=== PATIENT | female | born 1950 | race African-American/Black ===

== ENCOUNTER 2017-09-13 09:03 | Emergency (ER) | payer MEDICARE, MEDICAID ==
[2017-09-13] MEDS ORDERED: IPRATROPIUM/ALBUTEROL 0.5-2.5 MG/3 ML AMPUL NEB ONE (09:45)
[2017-09-13] MEDS ORDERED: PREDNISONE 20 MG TABLET PO ONE (09:45)
--- NOTE | 2017-09-13 09:56 | RADIOLOGY REPORT (SQ) ---
EXAM DESCRIPTION: CHEST PA/LAT COMPLETED DATE/TIME: 09/13/2017 9:33 am REASON FOR STUDY: cough and congestion COMPARISON: None. EXAM PARAMETERS: NUMBER OF VIEWS: two views TECHNIQUE: Digital Frontal and Lateral radiographic views of the chest acquired. RADIATION DOSE: NA LIMITATIONS: none FINDINGS: LUNGS AND PLEURA: No opacities, masses or pneumothorax. No pleural effusion. MEDIASTINUM AND HILAR STRUCTURES: No masses or contour abnormalities. HEART AND VASCULAR STRUCTURES: Heart normal size. No evidence for failure. BONES: No acute findings. HARDWARE: None in the chest. OTHER: No other significant finding. IMPRESSION: NO SIGNIFICANT RADIOGRAPHIC FINDING IN THE CHEST. TECHNICAL DOCUMENTATION: JOB ID: [id number] [employer]- All Rights Reserved
[2017-09-13] MEDS ORDERED: ALBUTEROL SULFATE HFA (90 MCG/PUFF) 8 GM MDI (1 MDI/ER DISP) IH ONE (10:42)
[2017-09-13] MEDS ORDERED: AZITHROMYCIN 250 MG TABLET PO ONE (10:42)
--- NOTE | 2017-09-13 10:45 | ER Document Report ---
ED General - General Chief Complaint: Chest Congestion Stated Complaint: COLD SYMPTOMS Time Seen by Provider: 09/13/17 09:23 TRAVEL OUTSIDE OF THE [place] IN LAST 30 DAYS: No - HPI Patient complains to provider of: Cough congestion Notes: Patient coming in with family member for similar symptoms cough congestion diarrhea productive cough no nausea no vomiting for the last 2 weeks. Unknown flu vaccination status. No recent travel antibiotics. Patient does have significant history for smoking. Patient sitting comfortably upon my evaluation - Related Data Allergies/Adverse Reactions: aspirin Allergy (Verified 09/13/17 09:05) codeine Allergy (Verified 09/13/17 09:05) Penicillins Allergy (Verified 09/13/17 09:05) IV Dye Allergy (Uncoded 09/13/17 09:28) Past Medical History - Social History Smoking Status: Current Every Day Smoker Chew tobacco use (# tins/day): No Frequency of alcohol use: None Drug Abuse: None Family History: Reviewed & Not Pertinent Patient has suicidal ideation: No Patient has homicidal ideation: No - Past Medical History Cardiac Medical History: Reports: Hx Hypercholesterolemia, Hx Hypertension Renal/ Medical History: Denies: Hx Peritoneal Dialysis Review of Systems - Review of Systems Constitutional: No symptoms reported EENT: No symptoms reported Cardiovascular: No symptoms reported Respiratory: Cough, Short of breath, Wheezing Gastrointestinal: No symptoms reported Genitourinary: No symptoms reported Female Genitourinary: No symptoms reported Musculoskeletal: No symptoms reported Skin: No symptoms reported Hematologic/Lymphatic: No symptoms reported Neurological/Psychological: No symptoms reported -: Yes All other systems reviewed and negative Physical Exam - Vital signs Vitals: Temp Pulse Resp BP Pulse Ox 99.4 F 99 17 132/68 H 95 09/13/17 09:09 09/13/17 09:09 09/13/17 09:09 09/13/17 09:09 09/13/17 09:09 Interpretation: Normal - General General appearance: Appears well, Alert - HEENT Head: Normocephalic, Atraumatic Eyes: Normal Pupils: PERRL - Respiratory Respiratory status: No respiratory distress Chest status: Nontender Breath sounds: Normal Chest palpation: Normal - Cardiovascular Rhythm: Regular Heart sounds: Normal auscultation Murmur: No - Abdominal Inspection: Normal Distension: No distension Bowel sounds: Normal Tenderness: Nontender Organomegaly: No organomegaly - Back Back: Normal, Nontender - Extremities General upper extremity: Normal inspection, Nontender, Normal color, Normal ROM , Normal temperature General lower extremity: Normal inspection, Nontender, Normal color, Normal ROM , Normal temperature, Normal weight bearing. No: Héctor's sign - Neurological Neuro grossly intact: Yes Cognition: Normal Orientation: AAOx4 Estefani Coma Scale Eye Opening: Spontaneous Estefani Coma Scale Verbal: Oriented Estefani Coma Scale Motor: Obeys Commands Estefani Coma Scale Total: 15 Speech: Normal Motor strength normal: LUE, RUE, LLE, RLE Sensory: Normal - Psychological Associated symptoms: Normal affect, Normal mood - Skin Skin Temperature: Warm Skin Moisture: Dry Skin Color: Normal Course - Re-evaluation Re-evalutation: 09/13/17 13:37 Chest x-ray is negative for any signs of pneumonia. When I recommend that the patient follow-up with her PCP. Will treat patient for bronchitis encouraged to stop smoking. Patient will be discharged home. - Vital Signs Vital signs: Temp Pulse Resp BP Pulse Ox 98.4 F 95 20 131/68 H 95 09/13/17 11:03 09/13/17 11:03 09/13/17 11:03 09/13/17 11:03 09/13/17 11:03 Discharge - Discharge Clinical Impression: Bronchitis Condition: Good Disposition: HOME, SELF-CARE Instructions: Stop Smoking ([facility]) Additional Instructions: Follow-up with your primary care physician. Return to ER if symptoms worsen. Your chest x-ray does not show any signs of pneumonia. Her symptoms are more consistent with a bronchitis. We will start you on steroids bronchodilators and antibiotics. Is very important that you stop smoking. Return to ER symptoms worsen follow-up with your primary care physician. Prescriptions: Azithromycin [Zithromax] 250 mg PO DAILY 4 Days #4 tablet Prednisone [Deltasone 20 mg Tablet] 3 tab PO DAILY 4 Days tablet Forms: Smoking Cessation Education, Return to Work
[2017-09-13 11:07] VITALS: BP 131/68
== END 2017-09-13 11:21 | disposition home or self-care (01) ==
LOC: ER 09:03
DX: J40 Bronchitis, not specified as acute or chronic (principal); R09.89 Other specified symptoms and signs involving the circulatory and respiratory systems; R05 Cough; R19.7 Diarrhea, unspecified; F17.200 Nicotine dependence, unspecified, uncomplicated
CPT/HCPCS: 94640; 99283; 71020; A9270 ×3; J3490; J7512; J7620

== ENCOUNTER 2018-06-09 12:27 | Emergency (ER) | payer MEDICARE, MEDICAID ==
--- NOTE | 2018-06-09 13:32 | ER Document Report ---
ED Medical Screen (RME) - General Chief Complaint: High Blood Sugar Stated Complaint: DIZZINESS Time Seen by Provider: 06/09/18 13:23 TRAVEL OUTSIDE OF THE [place] IN LAST 30 DAYS: No - HPI Notes: 06/09/18 13:32 Patient is a 67-year-old female that presents to the emergency department for chief complaint of near syncope and hyperglycemia. Patient began feeling lightheaded this morning and took her blood glucose at home. It was 240. Currently is 168. She is not an insulin-dependent diabetic. She reports feeling very lightheaded earlier which is improving but still present. She denies syncope, palpitations and chest pain.. ROS: GENERAL: Denies fever of chills CV: Denies chest pain PHYSICAL EXAMINATION: GENERAL: Well-appearing, well-nourished and in no acute distress. HEAD: Atraumatic, normocephalic. EYES: Pupils equal round extraocular movements intact, conjunctiva are normal. ENT: Nares patent NECK: Normal range of motion LUNGS: No respiratory distress Musculoskeletal: Normal range of motion NEUROLOGICAL: Normal speech, normal gait. PSYCH: Normal mood, normal affect. MDM: Patient seen and examined for rapid initial assessment. Vital signs reviewed. A comprehensive ED assessment and evaluation of the patient, analysis of test results and completion of the medical decision making process will be conducted by additional ED providers. - Related Data Allergies/Adverse Reactions: aspirin Allergy (Verified 06/09/18 12:32) codeine Allergy (Verified 06/09/18 12:32) Penicillins Allergy (Verified 06/09/18 12:32) IV Dye Allergy (Uncoded 06/09/18 12:32) Past Medical History - Social History Chew tobacco use (# tins/day): No Frequency of alcohol use: None Drug Abuse: None - Past Medical History Cardiac Medical History: Reports: Hx Hypercholesterolemia, Hx Hypertension Endocrine Medical History: Reports: Hx Diabetes Mellitus Type 2 Renal/ Medical History: Denies: Hx Peritoneal Dialysis Physical Exam - Vital signs Vitals: Temp Pulse Resp BP Pulse Ox 98.1 F 76 14 130/70 H 98 06/09/18 12:49 06/09/18 12:49 06/09/18 12:49 06/09/18 12:49 06/09/18 12:49 Course - Vital Signs Vital signs: Temp Pulse Resp BP Pulse Ox 98.1 F 76 14 130/70 H 98 06/09/18 12:49 06/09/18 12:49 06/09/18 12:49 06/09/18 12:49 06/09/18 12:49
--- NOTE | 2018-06-09 14:30 | RADIOLOGY REPORT (SQ) ---
EXAM DESCRIPTION: CHEST SINGLE VIEW COMPLETED DATE/TIME: 06/09/2018 2:09 pm REASON FOR STUDY: dizzy COMPARISON: 09/13/2017 EXAM PARAMETERS: NUMBER OF VIEWS: One view. TECHNIQUE: Single frontal radiographic view of the chest acquired. RADIATION DOSE: NA LIMITATIONS: None. FINDINGS: LUNGS AND PLEURA: The lungs are hyperexpanded. There is no infiltrate or effusion or mass . MEDIASTINUM AND HILAR STRUCTURES: No masses. Contour normal. HEART AND VASCULAR STRUCTURES: Heart normal in size. Normal vasculature. BONES: No acute findings. HARDWARE: None in the chest. OTHER: No other significant finding. IMPRESSION: Chronic lung changes with no acute cardiopulmonary disease. TECHNICAL DOCUMENTATION: JOB ID: [id number] [employer]- All Rights Reserved Reading location - IP/workstation name: [email or web address]
[2018-06-09 15:16] LABS: ABSOLUTE BASOPHILS # (AUTO) 0.1 10^3/uL (0.0-0.2); ABSOLUTE EOSINOPHILS # (AUTO) 0.2 10^3/uL (0.0-0.6); ABSOLUTE LYMPHOCYTES (AUTO) 4.3 10^3/uL (0.5-4.7); ABSOLUTE MONOCYTES (AUTO) 0.7 10^3/uL (0.1-1.4); ABSOLUTE NEUT (AUTO) 5.9 10^3/uL (1.7-8.2); BASOPHILS % (AUTO) 1.1 % (0-2); EOSINOPHILS % (AUTO) 1.7 % (0-6); HEMATOCRIT 44.7 % (36.0-47.0); HEMOGLOBIN 15.1 g/dL (12.0-15.5); LYMPHOCYTES % (AUTO) 38.2 % (13-45); MEAN CORPUSCULAR HEMOGLOBIN 28.3 pg (27.0-33.4); MEAN CORPUSCULAR HGB CONC 33.7 g/dL (32.0-36.0); MEAN CORPUSCULAR VOLUME 84 fl (80-97); MONOCYTES % (AUTO) 6.6 % (3-13); PLATELET COUNT 239 10^3/uL (150-450); RED BLOOD COUNT 5.32 10^6/uL (3.72-5.28); RED CELL DISTRIBUTION WIDTH 13.7 % (11.5-14.0); SEGMENTED NEUTROPHILS % (AUTO) 52.4 % (42-78); TOTAL CELLS COUNTED % (AUTO) 100 %; WHITE BLOOD COUNT 11.3 10^3/uL (4.0-10.5)
[2018-06-09 15:31] LABS: ANION GAP 13 (5-19); BLOOD UREA NITROGEN 17 mg/dL (7-20); CALCIUM 10.2 mg/dL (8.4-10.2); CARBON DIOXIDE 23 mmol/L (22-30); CHLORIDE 105 mmol/L (98-107); GLUCOSE 109 mg/dL (75-110); POTASSIUM 4.9 mmol/L (3.6-5.0); SODIUM 140.5 mmol/L (137-145)
[2018-06-09] MEDS ORDERED: ONDANSETRON 4 MG TAB.RAPDIS PO ONE (16:59)
[2018-06-09] MEDS ORDERED: ACETAMINOPHEN 325 MG TABLET PO ONE (16:59)
[2018-06-09 18:13] LABS: APPEARANCE,URINE CLEAR; BILIRUBIN,URINE NEGATIVE (NEGATIVE); COLOR,URINE YELLOW; GLUCOSE, URINE NEGATIVE (NEGATIVE); KETONES,URINE NEGATIVE (NEGATIVE); LEUKOCYTE ESTERASE,URINE NEGATIVE (NEGATIVE); NITRITE,URINE NEGATIVE (NEGATIVE); PROTEIN,URINE NEGATIVE (NEGATIVE); URINE SPECIFIC GRAVITY 1.011; UROBILINOGEN,URINE NEGATIVE mg/dL (<2.0)
--- NOTE | 2018-06-09 18:46 | ER Document Report ---
ED General - General Chief Complaint: High Blood Sugar Stated Complaint: DIZZINESS Time Seen by Provider: 06/09/18 13:23 TRAVEL OUTSIDE OF THE [place] IN LAST 30 DAYS: No - HPI Patient complains to provider of: Elevated blood sugar dizziness Notes: Patient coming in for elevated blood sugar and dizziness. Patient states she had rice for dinner last night checked her blood sugar earlier this morning greater than 200 check that again later and blood sugar continue to rise therefore patient came to the ER for further evaluation denies any fevers chills nausea vomiting diarrhea patient states slight dizzy with slight right- sided headache. Patient denies any trauma resting comfortably upon my evaluation. - Related Data Allergies/Adverse Reactions: aspirin Allergy (Verified 06/09/18 12:32) codeine Allergy (Verified 06/09/18 12:32) Penicillins Allergy (Verified 06/09/18 12:32) IV Dye Allergy (Uncoded 06/09/18 12:32) Past Medical History - Social History Smoking Status: Former Smoker Chew tobacco use (# tins/day): No Frequency of alcohol use: None Drug Abuse: None Family History: Reviewed & Not Pertinent Patient has suicidal ideation: No Patient has homicidal ideation: No - Past Medical History Cardiac Medical History: Reports: Hx Hypercholesterolemia, Hx Hypertension Endocrine Medical History: Reports: Hx Diabetes Mellitus Type 2 Renal/ Medical History: Denies: Hx Peritoneal Dialysis Review of Systems - Review of Systems Constitutional: No symptoms reported EENT: No symptoms reported Cardiovascular: No symptoms reported Respiratory: No symptoms reported Gastrointestinal: No symptoms reported Genitourinary: No symptoms reported Female Genitourinary: No symptoms reported Musculoskeletal: No symptoms reported Skin: No symptoms reported Hematologic/Lymphatic: No symptoms reported Neurological/Psychological: Other - Dizziness -: Yes All other systems reviewed and negative Physical Exam - Vital signs Vitals: Temp Pulse Resp BP Pulse Ox 98.1 F 76 14 130/70 H 98 06/09/18 12:49 06/09/18 12:49 06/09/18 12:49 06/09/18 12:49 06/09/18 12:49 Interpretation: Normal - General General appearance: Appears well, Alert - HEENT Head: Normocephalic, Atraumatic Eyes: Normal Pupils: PERRL - Respiratory Respiratory status: No respiratory distress Chest status: Nontender Breath sounds: Normal Chest palpation: Normal - Cardiovascular Rhythm: Regular Heart sounds: Normal auscultation Murmur: No - Abdominal Inspection: Normal Distension: No distension Bowel sounds: Normal Tenderness: Nontender Organomegaly: No organomegaly - Back Back: Normal, Nontender - Extremities General upper extremity: Normal inspection, Nontender, Normal color, Normal ROM , Normal temperature General lower extremity: Normal inspection, Nontender, Normal color, Normal ROM , Normal temperature, Normal weight bearing. No: Héctor's sign - Neurological Neuro grossly intact: Yes Cognition: Normal Orientation: AAOx4 Estefani Coma Scale Eye Opening: Spontaneous Estefani Coma Scale Verbal: Oriented Jenison Coma Scale Motor: Obeys Commands Estefani Coma Scale Total: 15 Speech: Normal Motor strength normal: LUE, RUE, LLE, RLE Sensory: Normal - Psychological Associated symptoms: Normal affect, Normal mood - Skin Skin Temperature: Warm Skin Moisture: Dry Skin Color: Normal Course - Re-evaluation Re-evalutation: 06/09/18 22:10 Laboratory studies not show any critical pathology at this time. Patient's headache improved after treatment here in the ER. Patient will be discharged on follow-up primary care physician. Patient feeling better after her stay here in ER and agrees with discharge home patient states that she is hungry at this time. Patient is encouraged follow-up primary care physician to have a hemoglobin A1c performed. - Vital Signs Vital signs: Temp Pulse Resp BP Pulse Ox 98.1 F 76 13 120/59 L 97 06/09/18 12:49 06/09/18 12:49 06/09/18 18:03 06/09/18 18:03 06/09/18 18:03 - Laboratory Result Diagrams: 06/09/18 14:55 06/09/18 14:55 Laboratory results interpreted by me: 06/09/18 06/09/18 06/09/18 13:28 14:55 14:55 WBC 11.3 H RBC 5.32 H POC Glucose 168 H Urine Blood SMALL H Discharge - Discharge Clinical Impression: Hyperglycemia Condition: Good Disposition: HOME, SELF-CARE Instructions: Hyperglycemia ([facility]) Additional Instructions: Your laboratory studies today do show elevated blood sugar but does not show any signs of diabetic ketoacidosis or hyperosmolar state. I do believe your elevated blood sugars due to the usage a night prior. Recommend following up with your doctor for further diabetic teaching and further diabetic testing such as A1c. Return to ER if symptoms worsen please make sure drinking plenty of fluids and eating a healthy diet Referrals: RUTHY GARCIA MD [Primary Care Provider] - Follow up as needed
[2018-06-09 19:09] VITALS: BP 120/59
--- NOTE | 2018-06-09 23:05 | EKG REPORT ---
SEVERITY:- NORMAL ECG - SINUS RHYTHM : Confirmed by: Joseph Amador 09-Jun-2018 23:04:37
== END 2018-06-09 19:09 | disposition home or self-care (01) ==
LOC: ER 12:27
DX: E11.65 Type 2 diabetes mellitus with hyperglycemia (principal); R42 Dizziness and giddiness; R51 Headache; I10 Essential (primary) hypertension
CPT/HCPCS: 93005; 99285; 36415; 82962; 85025; 80048; 81001; 84484; 71045; 93010; A9270 ×2; S0119